=== PATIENT | female | born 1945 | race Two or more races ===

== ENCOUNTER 2023-01-16 15:44 | Emergency (ER) | payer OTHER ==
[~2023-01-16] VITALS: Ht 152.4 cm; Wt 81.6 kg
[~2023-01-16 15:44] MED LIST: LISINOPRIL5 MG PO; METFORMIN HCL500 M1 PO; SIMVASTATIN5 MG PO
== END 2023-01-16 20:28 | disposition home or self-care (01) ==
LOC: ER 15:44
DX: H92.01 Otalgia, right ear (principal); I10 Essential (primary) hypertension; E11.9 Type 2 diabetes mellitus without complications; E78.1 Pure hyperglyceridemia; Z88.6 Allergy status to analgesic agent